=== PATIENT | female | born 1965 | race Caucasian/White ===

== ENCOUNTER 2019-05-11 17:53 | Emergency (ER) | payer OTHER ==
--- NOTE | 2019-05-11 19:21 | Emergency Department Record ---
History of Present Illness - General Chief complaint: Lower Extremity Pain Stated complaint: LT FOOT INJURY/PAIN Time Seen by Provider: 05/11/19 19:01 Source: Patient, Family Mode of Arrival: Wheelchair Limitations: No limitations - History of Present Illness Initial comments: pt tripped on hose at [employer] and fell injuring l foot, l knee and r shoul jeanine. she is unable to bear weight and heard a pop in her foot MD Complaint: Extremity pain, Extremity swelling Onset/Timin -: Hour(s) Location: Left, Right, Foot, Knee, Shoulder Severity scale (1-10): 8 Quality: Aching, Sharp Consistency: Constant Improves with: Nothing Worsens with: Walking, Weight bearing Associated Symptoms: Denies other symptoms - Related Data Home Medications Medication Instructions Recorded Confirmed Last Taken Glimepiride [Amaryl] 4 mg PO DAILY 05/11/19 05/11/19 05/11/19 Lisinopril 1 tab PO DAILY 05/11/19 05/11/19 05/11/19 Metformin HCl 1 tab PO TID 05/11/19 05/11/19 05/11/19 Multivitamin [Multiple Vitamins] 1 tab PO DAILY 05/11/19 05/11/19 05/11/19 Pioglitazone HCl [Actos] 15 mg PO DAILY 05/11/19 05/11/19 05/11/19 Simvastatin 1 tab PO DAILY 05/11/19 05/11/19 1 Day Ago ~05/10/19 Previous Rx's Medication Instructions Recorded Hydrocodone/Acetaminophen [[place] 1 each PO Q6HR #10 tablet 05/11/19 5-325 Tablet] Allergies Allergy/AdvReac Type Severity Reaction Status Date / Time atorvastatin [From Lipitor] Allergy ITCHING Verified 05/11/19 19:07 Travel Screening - Travel/Exposure Within Last 30 Days Have you traveled within the last 30 days?: No - Travel/Exposure Within Last Year Have you traveled outside the [place] in the last year?: Yes Location Detail:: [place] - Additonal Travel Details Have you been exposed to anyone with a communicable illness?: No - Travel Symptoms Symptom Screening: None Review of Systems Reviewed: No additional complaints except as noted below Constitutional: Reports: As per HPI. Denies: Chills, Fever, Malaise, Night sweats, Weakness, Weight change Eyes: Reports: As per HPI. Denies: Eye discharge, Eye pain, Photophobia, Vision change ENT: Reports: As per HPI. Denies: Congestion, Dental pain, Ear pain, Epistaxis, Hearing loss, Throat pain Respiratory: Reports: As per HPI. Denies: Cough, Dyspnea, Hemoptysis, Stridor, Wheezes Cardiovascular: Reports: As per HPI. Denies: Arrhythmia, Chest pain, Dyspnea on exertion, Edema, Murmurs, Orthopnea, Palpitations, Paroxysmal nocturnal dyspnea, Rheumatic Fever, Syncope Endocrine: Reports: As per HPI. Denies: Fatigue, Heat or cold intolerance, Polydipsia, Polyuria Gastrointestinal: Reports: As per HPI. Denies: Abdominal pain, Constipation, Diarrhea, Hematemesis, Hematochezia, Melena, Nausea, Vomiting Genitourinary: Reports: As per HPI. Denies: Abnormal menses, Discharge, Dyspareunia, Dysuria, Frequency, Hematuria, Incontinence, Retention, Urgency Musculoskeletal: Reports: As per HPI. Denies: Arthralgia, Back pain, Gout, Joint swelling, Myalgia, Neck pain Skin: Reports: As per HPI. Denies: Bruising, Change in color, Change in hair/nails, Lesions, Pruritus, Rash Neurological: Reports: As per HPI. Denies: Abnormal gait, Confusion, Headache, Numbness, Paresthesias, Seizure, Tingling, Tremors, Vertigo, Weakness Psychiatric: Reports: As per HPI. Denies: Anxiety, Auditory hallucinations, Depression, Homicidal thoughts, Suicidal thoughts, Visual hallucinations Hematological/Lymphatic: Reports: As per HPI. Denies: Anemia, Blood Clots, Easy bleeding, Easy bruising, Swollen glands Past Medical History - SOCIAL HISTORY Smoking Status: Former smoker Alcohol Use: Rare Drug Use: None - RESPIRATORY Hx Respiratory Disorders: Yes Hx Bronchitis: Yes - CARDIOVASCULAR Hx Cardio Disorders: No - NEURO Hx Neuro Disorders: Yes Hx Seizures: Yes (2005) - GI Hx GI Disorders: No - Hx Genitourinary Disorders: No - ENDOCRINE Hx Diabetes: Yes - MUSCULOSKELETAL Hx Musculoskeletal Disorders: Yes Hx Arthritis: Yes (r knee) - PSYCH Hx Psych Problems: No Family Medical History Any Significant Family History?: Yes Hx Heart Disease: Father, Grandparents Hx Stroke: Mother Physical Exam - General General Appearance: Alert, Oriented x3, Cooperative, Mild distress - Head Head exam: Normal inspection - Eye Eye exam: Normal appearance, PERRL, EOMI Pupils: Normal accommodation - ENT ENT exam: Normal exam, Mucous membranes moist, Normal external ear exam, Normal orophraynx Ear exam: Normal external inspection. negative: External canal tenderness Nasal Exam: Normal inspection. negative: Discharge, Sinus tenderness Mouth exam: Normal external inspection, Tongue normal Teeth exam: Normal inspection. negative: Dental caries Throat exam: Normal inspection. negative: Tonsillar erythema, Tonsillar exudate - Neck Neck exam: Normal inspection, Full ROM. negative: Tenderness - Respiratory Respiratory exam: Normal lung sounds bilaterally. negative: Respiratory distress - Cardiovascular Cardiovascular Exam: Regular rate, Normal rhythm, Normal heart sounds - GI/Abdominal GI/Abdominal exam: Soft, Normal bowel sounds. negative: Tenderness - Rectal Rectal exam: Deferred - exam: Deferred - Extremities Extremities exam: Normal capillary refill, Tenderness. negative: Full ROM Image of Full Body: 1 - tender 2 - tender 3 - tender - Back Back exam: Reports: Normal inspection, Full ROM. Denies: Muscle spasm, Rash noted, Tenderness - Neurological Neurological exam: Alert, CN II-XII intact, Normal gait, Oriented X3 - Psychiatric Psychiatric exam: Normal affect, Normal mood - Skin Skin exam: Dry, Intact, Normal color, Warm Course Vital Signs 05/11/19 19:02 Temperature 98.1 F Pulse Rate [ 81 Left] Respiratory 16 Rate Blood Pressure 143/81 [Left] Pulse Ox 98 Disposition Disposition: Discharge Clinical Impression: Metatarsal bone fracture Qualifiers: Encounter type: initial encounter Metatarsal bone: fifth Fracture type: closed Fracture alignment: displaced Laterality: left Qualified Code(s): S92.352A - Displaced fracture of fifth metatarsal bone, left foot, initial encounter for closed fracture Disposition: Home, Self-Care Condition: (1) Good Instructions: Foot Fracture in Adults (ED) Additional Instructions: follow up with family doctor and with orthopedics. return sooner if worse. ice and elevate foot. motrin for pain Prescriptions: Hydrocodone/Acetaminophen [[place] 5-325 Tablet] 1 each PO Q6HR #10 tablet Forms: Patient Portal Access Quality - Quality Measures Quality Measures: N/A - Blood Pressure Screening Does Patient Have Any of the Following: No Blood Pressure Classification: Pre-Hypertensive BP Reading Systolic Measurement: 143 Diastolic Measurement: 81 Screening for High Blood Pressure: < Pre-Hypertensive BP, F/U Documented > [G8950] Pre-Hypertensive Follow-up Interventions: Follow-up with rescreen every year.
[2019-05-11] MEDS ORDERED: HYDROCODONE/APAP 5/325MG TABLET PO ONE (20:12)
--- NOTE | 2019-05-11 20:17 | RADIOLOGY REPORT ---
EXAMINATION: SHOULDER, RIGHT EXAM DATE: 05/11/2019 7:29 PM TECHNIQUE: 3 views of the right shoulder. INDICATION: fall, right shoulder pain COMPARISON: None ENCOUNTER: Initial FINDINGS: No acute fracture or dislocation. No acromioclavicular joint separation. No focal bone lesions. IMPRESSION: No acute fracture. Dictated by: Dwayne Betancur MD on 05/11/2019 7:33 PM. .
--- NOTE | 2019-05-11 20:17 | RADIOLOGY REPORT ---
EXAMINATION: Left Foot, Minimum Three Views EXAM DATE: 05/11/2019 7:29 PM TECHNIQUE: AP, lateral, and oblique INDICATION: fall, left foot pain COMPARISON: None ENCOUNTER: Initial FINDINGS: Acute oblique fracture through the 5th metatarsal shaft with slight medial translation of the distal fragment. No other fracture. The joint spaces are preserved. Plantar calcaneal spur noted. IMPRESSION: Acute 5th metatarsal shaft fracture. Dictated by: Dwayne Betancur MD on 05/11/2019 7:31 PM. .
--- NOTE | 2019-05-11 20:17 | RADIOLOGY REPORT ---
EXAMINATION: Left Knee Complete, Four or More Views EXAM DATE: 05/11/2019 7:29 PM TECHNIQUE: Frontal, lateral, oblique and sunrise view INDICATION: fall COMPARISON: None ENCOUNTER: Initial FINDINGS: The left knee maintains normal alignment. There is no fracture or dislocation. No focal bony lesion. There is no gross effusion. The patellar position is normal. IMPRESSION: Negative left knee radiographs. Dictated by: Cornell Thompson MD on 05/11/2019 7:32 PM. .
== END 2019-05-11 21:36 | disposition home or self-care (01) ==
LOC: ER 17:53
DX: S92.352A Displaced fracture of fifth metatarsal bone, left foot, initial encounter for closed fracture (principal); M25.562 Pain in left knee; M25.511 Pain in right shoulder; W01.198A Fall on same level from slipping, tripping and stumbling with subsequent striking against other object, initial encounter; Y92.524 Gas station as the place of occurrence of the external cause
CPT/HCPCS: 99284